=== PATIENT | male | born 1945 | race Caucasian/White ===

== ENCOUNTER 2019-06-06 11:31 | Inpatient (IN) ==
[~2019-06-06 11:31] MED LIST: ASPIRIN 325 MG TABLET PO ONE; DIAZEPAM 5 MG TABLET PO ONE; MAGNESIUM SULF RIDER 2 GM in PREMIX 1 EACH IV PRN; POTASSIUM CHLORIDE RIDER 10 MEQ in PREMIX 1 EACH IV PRN; SODIUM CHLORIDE 0.9% 1,000 ML IV SCH; diphenhydrAMINE CAP 25 MG CAPSULE PO ONE
[2019-06-06] MEDS ORDERED: DIAZEPAM 5 MG TABLET ONE (12:25)
[2019-06-06] MEDS ORDERED: diphenhydrAMINE CAP 25 MG CAPSULE ONE (12:25)
[2019-06-06 12:40] LABS: INR 1.2; PT Patient Result 12.6 SECS
[2019-06-06] MEDS ORDERED: LIDOCAINE 1% 20 ML VIAL ONE (13:57)
[2019-06-06] MEDS ORDERED: fentaNYL 100 MCG/2 ML VIAL ONE (14:02)
[2019-06-06] MEDS ORDERED: MIDAZOLAM 2 MG/2 ML VIAL ONE (14:02)
[2019-06-06] MEDS ORDERED: HEPARIN 5,000 UNIT/1 ML VIAL ONE (14:09)
[2019-06-06] MEDS ORDERED: MAGNESIUM SULF RIDER 4 GM in PREMIX 1 EACH IV PRN (15:22)
[2019-06-06] MEDS ORDERED: GLUCAGON 1 MG VIAL IM PRN (15:48)
[2019-06-06] MEDS ORDERED: DEXTROSE 10% 250 ML BAG IV PRN (15:48)
[2019-06-06] MEDS ORDERED: SODIUM CHLORIDE 0.9% 1,000 ML IV SCH (16:00)
[2019-06-06 16:13] LABS: Basophils # 0.1 10*3/uL (0.0-0.2); Basophils % 0.9 % (0.0-0.8); Eosinophils # 0.1 10*3/uL (0.0-0.87); Eosinophils % 1.9 % (0.00-10.9); Hematocrit 43.1 VOL% (42.0-52.0); Hemoglobin 13.4 GM/DL (14.0-18.0); Immature Granulocytes % 0.3 %; Immature Granulocytes Absolute 0.02 #; Lymphocytes # 1.3 10*3/uL (1.4-4.0); Lymphocytes % 19.9 % (21.2-54.2); Mean Corpuscular HGB Conc 31.1 GM/DL (32-36); Mean Corpuscular Volume 94.5 FL (87-102); Mean Platelet Volume 10.2 FL (9.6-12.0); Monocytes % 14.8 % (1.7-12.7); Neutrophils % 62.2 % (38.7-73.9); Platelet Count 233 T/CUMM (130-400); Red Blood Count 4.56 MC/CUMM (3.8-5.5); Red Cell Distribution Width 12.5 % (9.3-17.3); White Blood Count 6.4 T/CUMM (4-12)
[2019-06-06 16:29] LABS: Allen Test Positive; Pt O2 Delivery Device Room Air
[2019-06-06 16:34] LABS: ABG Base Excess 1.8 MMOL/L (-2.5-2.5); ABG HCO3 25.9 MMOL/L (20-26); ABG Oxygen Saturation 96.2 % (95-100); ABG PCO2 39.7 MM HG (35-48); ABG PH 7.427 (7.35-7.45); ABG PO2 76.4 MM HG (80-95); ABG TCO2 22.5 MMOL/L (23-27)
[2019-06-06 16:42] LABS: Albumin 3.3 G/DL (3.4-5.0); Bilirubin,Total 0.9 MG/DL (0.2-1.0); Calcium 8.7 MG/DL (8.5-10.1); Osmolality,Calculated 282.1 MOS/KG (273-304)
[2019-06-06] MEDS ORDERED: ONDANSETRON 4 MG/2 ML VIAL IV PRN (17:58)
[2019-06-06] MEDS ORDERED: diphenhydrAMINE CAP 25 MG CAPSULE PO PRN (17:58)
[2019-06-06] MEDS ORDERED: DOCUSATE SODIUM 100 MG CAPSULE PO PRN (17:58)
[2019-06-06] MEDS ORDERED: ZALEPLON 5 MG CAPSULE PO PRN (17:58)
[2019-06-06] MEDS ORDERED: ACETAMINOPHEN 325 MG TABLET PO PRN (17:58)
[2019-06-06] MEDS ORDERED: PROMETHAZINE 25 MG TABLET PO PRN (17:58)
[2019-06-06] MEDS ORDERED: MORPHINE 4 MG/1 ML VIAL IV PRN (17:58)
[2019-06-06] MEDS ORDERED: MECLIZINE 25 MG TABLET PO SCH (21:00)
[2019-06-06] MEDS ORDERED: CARBIDOPA/LEVODOPA 25-100 MG TABLET PO SCH (21:00)
[2019-06-06] MEDS: ISOSORBIDE MONONITRATE 20 MG TABLET PO SCH (21:22)
[2019-06-06] MEDS: CHLORHEXIDINE 0.12% ORAL RINSE 60 ML BOTTLE SWISH/SPIT SCH (21:24)
[2019-06-06] MEDS: CHLORHEXIDINE 4% SOLN 118 ML BOTTLE TOP SCH (21:26)
[2019-06-07] MEDS: CHLORHEXIDINE 4% SOLN 118 ML BOTTLE TOP SCH ×3 (02:48→09:40)
[2019-06-07] MEDS ORDERED: PAPAVERINE 60 MG/2 ML VIAL ONE (05:02)
[2019-06-07] MEDS ORDERED: VANCOMYCIN 1,000 MG VIAL ONE (05:03)
[2019-06-07] MEDS ORDERED: LORazepam 1 MG TABLET PO ONE (06:00)
[2019-06-07] MEDS ORDERED: CALCIUM CHLORIDE 1,000 MG/10 ML VIAL IV ONE (06:07)
[2019-06-07] MEDS ORDERED: SUFentanil 250 MCG/5 ML AMP ONE (06:08)
[2019-06-07] MEDS ORDERED: MIDAZOLAM 10 MG/2 ML VIAL ONE (06:09)
[2019-06-07] MEDS ORDERED: SUCCINYLCHOLINE 200 MG/10 ML VIAL ONE (06:09)
[2019-06-07] MEDS ORDERED: CEFUROXIME INJ 1,500 MG in SYRINGE 1 EACH IV ONE (06:30)
[2019-06-07] MEDS ORDERED: CALCIUM CHLORIDE 1,000 MG/10 ML SYRINGE IV ONE (07:09)
[2019-06-07] MEDS ORDERED: NITROPRUSSIDE 50 MG/2 ML VIAL ONE (07:09)
[2019-06-07] MEDS ORDERED: POTASSIUM CHLORIDE RIDER 100 ML IV ONE (07:09)
[2019-06-07] MEDS ORDERED: PHENYLEPHRINE DRIP 40 MG/250 ML PREMIX IV ONE (07:09)
[2019-06-07] MEDS ORDERED: SODIUM BICARBONATE 50 MEQ/50 ML VIAL IV ONE ×2 (07:09→11:03)
[2019-06-07 07:42] LABS: ABG Base Excess 0.7 MMOL/L (-2.5-2.5); ABG HCO3 25.1 MMOL/L (20-26); ABG Oxygen Saturation 99.7 % (95-100); ABG PCO2 43.8 MM HG (35-48); ABG PH 7.382 (7.35-7.45); ABG TCO2 22.7 MMOL/L (23-27); Glucose Heart Surgery 109 MG/DL (74-106); Hematocrit Heart Surgery 40.9 PERCENT (42-52); Hemoglobin Heart Surgery 13.3 G/DL (14.0-18.0); Ionized Calcium Arterial 1.21 MMOL/L (1.21-1.46); PCO2 Patient Temp Arterial 43.8 MMHG; PH Patient Temp Arterial 7.382; Patient Temperature 37 CELCIUS; Potassium Heart/CVR 3.6 MMOL/L (3.5-5.1); Sodium Heart/CVR 140 MMOL/L (135-145)
[2019-06-07 08:07] LABS: Apearance,Urine CLEAR (Clear); Bilirubin,Urine Negative (Negative); Blood, Urine Negative (Negative); Glucose,Urine (UA) Negative (Negative); Ketones,Urine Negative (Negative); Mucus,Urine Occasional /LPF (Occasional); Nitrite,Urine Negative (Negative); Protein,Urine Negative; RBC,Urine <1 /HPF (0-4); Squamous Epithelial Cell,Urine Occasional /HPF (0-10); Urine Color Yellow (Yellow); Urine Specific Gravity 1.019 (1.001-1.035); Urine Urobilinogen < 2.0 EU/DL (0.2-1.0)
[2019-06-07] MEDS ORDERED: CITALOPRAM 20 MG TABLET PO SCH (09:00)
[2019-06-07] MEDS ORDERED: POTASSIUM CHLORIDE 8 MEQ CAPSULE PO SCH (09:00)
[2019-06-07] MEDS ORDERED: ASPIRIN 325 MG TABLET PO SCH (09:00)
[2019-06-07] MEDS ORDERED: GABAPENTIN 100 MG CAPSULE PO SCH (09:00)
[2019-06-07] MEDS ORDERED: LISINOPRIL 20 MG TABLET PO SCH (09:00)
[2019-06-07] MEDS ORDERED: amLODIPine 5 MG TABLET PO SCH (09:00)
[2019-06-07] MEDS ORDERED: METOPROLOL SUCCINATE XL 50 MG TABLET PO SCH (09:00)
[2019-06-07] MEDS ORDERED: FUROSEMIDE 40 MG TABLET PO SCH (09:00)
[2019-06-07 09:34] LABS: Hematocrit Heart Surgery 29.2 PERCENT (42-52); Hemoglobin Heart Surgery 9.4 G/DL (14.0-18.0); PCO2 Patient Temp Venous 32.6 MM HG; PH Patient Temp Venous 7.479; PO2 Patient Temp Venous 39.2 MM HG; Potassium Heart/CVR 4.6 MMOL/L (3.5-5.1); VBG Base Excess 1.2 MEQ/L (0-4); VBG HCO3 25.2 MEQ/L (24-28); VBG PH 7.449
[2019-06-07] MEDS ORDERED: PHENYLEPHRINE DRIP 20 MG/250 ML PREMIX IV ONE (09:38)
[2019-06-07] MEDS ORDERED: AMINOCAPROIC ACID 5,000 MG/20 ML VIAL ONE (09:39)
[2019-06-07] MEDS ORDERED: NITROGLYCERIN DRIP 50 MG/250 ML BOTTLE IV ONE (09:39)
[2019-06-07] MEDS ORDERED: HEPARIN/NACL 0.9% 2 UNITS/ML 500 ML IV ONE (09:39)
[2019-06-07] MEDS: ISOSORBIDE MONONITRATE 20 MG TABLET PO SCH (09:40)
[2019-06-07] MEDS: CHLORHEXIDINE 0.12% ORAL RINSE 60 ML BOTTLE SWISH/SPIT SCH ×2 (09:41→20:36)
[2019-06-07 10:04] LABS: Hematocrit Heart Surgery 30.3 PERCENT (42-52); Hemoglobin Heart Surgery 9.8 G/DL (14.0-18.0); PCO2 Patient Temp Venous 32.9 MM HG; PH Patient Temp Venous 7.468; PO2 Patient Temp Venous 37.6 MM HG; Potassium Heart/CVR 3.9 MMOL/L (3.5-5.1); VBG Base Excess 0.6 MEQ/L (0-4); VBG HCO3 24.8 MEQ/L (24-28); VBG Oxygen Saturation 84.9 %; VBG PH 7.424; VBG PO2 46.3 MMHG (17-40)
[2019-06-07 10:34] LABS: Hematocrit Heart Surgery 31.1 PERCENT (42-52); PCO2 Patient Temp Venous 37.1 MM HG; PH Patient Temp Venous 7.436; PO2 Patient Temp Venous 38.3 MM HG; Potassium Heart/CVR 4.2 MMOL/L (3.5-5.1); VBG Base Excess 0.9 MEQ/L (0-4); VBG HCO3 24.9 MEQ/L (24-28); VBG Oxygen Saturation 76.6 %; VBG PCO2 37.1 MMHG (41-51); VBG PH 7.436; VBG PO2 38.3 MMHG (17-40)
[2019-06-07] MEDS ORDERED: PROTAMINE SULFATE 250 MG/25 ML VIAL IV ONE (11:03)
[2019-06-07] MEDS ORDERED: ALBUMIN 25% 25 GM/100 ML VIAL IV ONE (11:03)
[2019-06-07] MEDS ORDERED: MANNITOL 100 GM/500 ML BAG IV ONE (11:03)
[2019-06-07] MEDS ORDERED: DEXTROSE 5% KCL 20 MEQ 20 MEQ/1,000 ML BAG IV ONE (11:03)
[2019-06-07] MEDS ORDERED: methylPREDNISolone SOD SUC 1,000 MG/8 ML VIAL ONE (11:04)
[2019-06-07] MEDS ORDERED: PROTAMINE SULFATE 50 MG/5 ML VIAL IV ONE ×2 (11:04→12:33)
[2019-06-07] MEDS ORDERED: HEPARIN 10,000 UNIT/10 ML VIAL ONE (11:04)
[2019-06-07] MEDS ORDERED: MAGNESIUM SULFATE 5 GM/10 ML VIAL IV ONE (11:04)
[2019-06-07] MEDS ORDERED: FUROSEMIDE 20 MG/2 ML VIAL ONE (11:04)
[2019-06-07 11:18] LABS: ABG HCO3 24.5 MMOL/L (20-26); ABG PCO2 36.5 MM HG (35-48); ABG PH 7.427 (7.35-7.45); ABG TCO2 21.7 MMOL/L (23-27); Glucose Heart Surgery 200 MG/DL (74-106); Hematocrit Heart Surgery 32.3 PERCENT (42-52); Hemoglobin Heart Surgery 10.5 G/DL (14.0-18.0); Ionized Calcium Arterial 1.29 MMOL/L (1.21-1.46); PCO2 Patient Temp Arterial 36.5 MMHG; PH Patient Temp Arterial 7.427; Patient Temperature 37 CELCIUS; Potassium Heart/CVR 3.6 MMOL/L (3.5-5.1); Sodium Heart/CVR 136 MMOL/L (135-145)
[2019-06-07] MEDS ORDERED: THROMBIN TOPICAL (RECOMBINANT) 5,000 UNIT VIAL TOP ONE (11:31)
[2019-06-07] MEDS ORDERED: AMIODARONE 450 MG/9 ML VIAL IV ONE (11:58)
[2019-06-07] MEDS ORDERED: AMIODARONE INJ 450 MG in DEXTROSE 5% 241 ML IV SCH ×3 (12:00→18:00)
[2019-06-07] MEDS ORDERED: MORPHINE 10 MG/1 ML VIAL IV PRN (12:30)
[2019-06-07] MEDS ORDERED: ONDANSETRON 4 MG/2 ML VIAL IV PRN (12:30)
[2019-06-07] MEDS ORDERED: NITROPRUSSIDE 100 MG in DEXTROSE 5% 250 ML IV PRN (12:30)
[2019-06-07] MEDS ORDERED: ALBUMIN 5% 12.5 GM in PREMIX 1 EACH IV PRN (12:30)
[2019-06-07] MEDS ORDERED: MORPHINE 4 MG/1 ML VIAL IV PRN (12:30)
[2019-06-07] MEDS ORDERED: DEXTROSE 50% 25 GM/50 ML VIAL IV PRN ×2 (12:30)
[2019-06-07] MEDS ORDERED: MAGNESIUM SULF RIDER 4 GM in PREMIX 1 EACH IV PRN (12:30)
[2019-06-07] MEDS ORDERED: CALCIUM CHLORIDE 1,000 MG/10 ML SYRINGE IV PRN (12:30)
[2019-06-07] MEDS ORDERED: PHENYLEPHRINE DRIP 40 MG/250 ML PREMIX IV PRN (12:30)
[2019-06-07] MEDS ORDERED: ACETAMINOPHEN 650 MG SUPP RECTAL PRN (12:30)
[2019-06-07] MEDS ORDERED: MAGNESIUM SULF RIDER 2 GM in PREMIX 1 EACH IV PRN (12:30)
[2019-06-07] MEDS ORDERED: LACTATED RINGERS 250 ML IV PRN (12:30)
[2019-06-07] MEDS ORDERED: INSULIN REGULAR DRIP 100 ML IV SCH (12:30)
[2019-06-07] MEDS ORDERED: VECURONIUM 10 MG VIAL IV PRN ×2 (12:30)
[2019-06-07] MEDS ORDERED: MIDAZOLAM 10 MG/2 ML VIAL IV PRN (12:30)
[2019-06-07] MEDS ORDERED: MIDAZOLAM 2 MG/2 ML VIAL IV PRN (12:30)
[2019-06-07] MEDS ORDERED: INSULIN REGULAR 100 UNIT/ML IV ONE (12:30)
[2019-06-07 12:35] LABS: ABG Base Excess -1.6 MMOL/L (-2.5-2.5); ABG Oxygen Saturation 97.1 % (95-100); ABG PCO2 38.5 MM HG (35-48); ABG PH 7.386 (7.35-7.45); ABG PO2 86.8 MM HG (80-95); ABG TCO2 20.9 MMOL/L (23-27); Basophils % 0.4 % (0.0-0.8); Eosinophils % 0.3 % (0.00-10.9); Glucose Heart Surgery 167 MG/DL (74-106); Hematocrit 33.8 VOL% (42.0-52.0); Hemoglobin 10.7 GM/DL (14.0-18.0); Hemoglobin Heart Surgery 10.7 G/DL (14.0-18.0); Immature Granulocytes % 0.5 %; Immature Granulocytes Absolute 0.04 #; Lymphocytes # 0.3 10*3/uL (1.4-4.0); Lymphocytes % 3.4 % (21.2-54.2); Mean Corpuscular HGB Conc 31.7 GM/DL (32-36); Mean Corpuscular Volume 93.4 FL (87-102); Mean Platelet Volume 10.1 FL (9.6-12.0); Monocytes % 8.3 % (1.7-12.7); Neutrophils % 87.1 % (38.7-73.9); Platelet Count 192 T/CUMM (130-400); Potassium Heart/CVR 3.2 MMOL/L (3.5-5.1); Red Blood Count 3.62 MC/CUMM (3.8-5.5); Red Cell Distribution Width 12.4 % (9.3-17.3); White Blood Count 7.9 T/CUMM (4-12)
[2019-06-07 12:43] LABS: INR 1.2; PT Patient Result 13.4 SECS; Partial Thromboplastin Time 28.2 SECS (0-40)
[2019-06-07] MEDS ORDERED: ePHEDrine 50 MG/ML AMP ONE (12:47)
[2019-06-07] MEDS ORDERED: MINERAL OIL/PETROLATUM OPH OINT 3.5 GM TUBE ONE (12:47)
[2019-06-07] MEDS ORDERED: SEVOFLURANE 1 UNIT/15 MINUTE INH ONE (12:47)
[2019-06-07] MEDS ORDERED: LACTATED RINGERS 2,000 ML IV ONE (12:48)
[2019-06-07] MEDS ORDERED: PHENYLEPHRINE 1 MG/10 ML SYRINGE IV ONE (12:48)
[2019-06-07] MEDS ORDERED: VECURONIUM 10 MG VIAL IV ONE (12:48)
[2019-06-07] MEDS ORDERED: SODIUM CHLORIDE 0.9% 250 ML IV ONE (12:48)
[2019-06-07] MEDS ORDERED: AMIODARONE 150 MG/3 ML VIAL ONE ×2 (12:48→12:53)
[2019-06-07] MEDS ORDERED: ETOMIDATE 40 MG/20 ML VIAL IV ONE (12:48)
[2019-06-07] MEDS ORDERED: SODIUM CHLORIDE 0.9% 300 ML IV ONE (12:48)
[2019-06-07] MEDS ORDERED: SODIUM CHLORIDE 0.9% 1,000 ML IV ONE (12:48)
[2019-06-07 12:55] LABS: Band Neutrophils 3 % (0-10); Hypochromasia 1+; Lymphocytes 2 % (20-55); Platelet Estimate Adequate; Segmented Neutrophils 86 % (50-85); Total Cells Counted 100
[2019-06-07 12:56] LABS: Microcytosis Slight
[2019-06-07] MEDS: SODIUM CHLORIDE 0.45% 1,000 ML IV SCH ×2 (12:57)
[2019-06-07 13:21] LABS: Troponin I 1.8 NG/ML (0.00-0.045)
[2019-06-07] MEDS: POTASSIUM CHLORIDE RIDER 20 MEQ in PREMIX 1 EACH IV PRN ×5 (13:32→21:10)
[2019-06-07 13:35] LABS: Bilirubin,Total 2.5 MG/DL (0.2-1.0); Calcium 8.8 MG/DL (8.5-10.1); Osmolality,Calculated 291.8 MOS/KG (273-304); Total Protein 5.6 G/DL (6.4-8.3)
[2019-06-07] MEDS: KETOROLAC 30 MG/1 ML VIAL IV SCH ×2 (13:48→18:11)
[2019-06-07 14:45] LABS: ABG Base Excess 0.5 MMOL/L (-2.5-2.5); ABG HCO3 24.9 MMOL/L (20-26); ABG Oxygen Saturation 97.8 % (95-100); ABG PH 7.398 (7.35-7.45); ABG PO2 90.1 MM HG (80-95); ABG TCO2 22.7 MMOL/L (23-27); Glucose Heart Surgery 163 MG/DL (74-106); Hematocrit Heart Surgery 33.9 PERCENT (42-52); Potassium Heart/CVR 3.9 MMOL/L (3.5-5.1)
[2019-06-07] MEDS: INSULIN REGULAR 100 UNIT/ML IV PRN ×3 (15:00→22:15)
[2019-06-07] MEDS: POTASSIUM CHLORIDE RIDER 10 MEQ in PREMIX 1 EACH IV PRN (15:37)
[2019-06-07 16:35] LABS: ABG Base Excess -0.9 MMOL/L (-2.5-2.5); ABG HCO3 23.6 MMOL/L (20-26); ABG PH 7.386 (7.35-7.45); ABG TCO2 21.4 MMOL/L (23-27); Glucose Heart Surgery 138 MG/DL (74-106); Hematocrit Heart Surgery 34.9 PERCENT (42-52); Hemoglobin Heart Surgery 11.3 G/DL (14.0-18.0)
[2019-06-07 20:12] LABS: ABG Base Excess -1.3 MMOL/L (-2.5-2.5); ABG HCO3 23.3 MMOL/L (20-26); ABG Oxygen Saturation 97.9 % (95-100); ABG PCO2 41.8 MM HG (35-48); ABG PH 7.367 (7.35-7.45); ABG PO2 97.6 MM HG (80-95); ABG TCO2 21.7 MMOL/L (23-27); Glucose Heart Surgery 164 MG/DL (74-106); Hematocrit Heart Surgery 33.6 PERCENT (42-52); Hemoglobin Heart Surgery 10.9 G/DL (14.0-18.0); Potassium Heart/CVR 4.3 MMOL/L (3.5-5.1)
[2019-06-07] MEDS ORDERED: FUROSEMIDE 40 MG/4 ML VIAL IV ONE (20:25)
[2019-06-07] MEDS: CEFUROXIME INJ 1,500 MG in SYRINGE 1 EACH IV SCH (20:36)
[2019-06-07 22:26] LABS: ABG Base Excess -1.8 MMOL/L (-2.5-2.5); ABG Oxygen Saturation 98.7 % (95-100); ABG PCO2 40.8 MM HG (35-48); ABG PH 7.367 (7.35-7.45); ABG TCO2 21.1 MMOL/L (23-27); Glucose Heart Surgery 144 MG/DL (74-106); Potassium Heart/CVR 4.1 MMOL/L (3.5-5.1)
[2019-06-07 22:30] LABS: CKMB % 7.1 %
[2019-06-07 22:44] LABS: Troponin I 4.32 NG/ML (0.00-0.045)
[2019-06-07 23:14] LABS: ABG Base Excess -1.2 MMOL/L (-2.5-2.5); ABG HCO3 23.4 MMOL/L (20-26); ABG Oxygen Saturation 98.2 % (95-100); ABG PCO2 43.5 MM HG (35-48); ABG PH 7.357 (7.35-7.45); ABG TCO2 21.9 MMOL/L (23-27); Glucose Heart Surgery 131 MG/DL (74-106); Hematocrit Heart Surgery 34.8 PERCENT (42-52); Hemoglobin Heart Surgery 11.3 G/DL (14.0-18.0); Potassium Heart/CVR 4.3 MMOL/L (3.5-5.1)
[2019-06-08 00:07] LABS: ABG Base Excess -1.9 MMOL/L (-2.5-2.5); ABG HCO3 23.1 MMOL/L (20-26); ABG Oxygen Saturation 97.7 % (95-100); ABG PCO2 40.3 MM HG (35-48); ABG PH 7.376 (7.35-7.45); ABG PO2 113.5 MM HG (80-95); ABG TCO2 24.3 MMOL/L (23-27); Glucose Heart Surgery 106 MG/DL (74-106); Hemoglobin Heart Surgery 11.7 G/DL (14.0-18.0); Potassium Heart/CVR 4.1 MMOL/L (3.5-5.1)
[2019-06-08] MEDS: KETOROLAC 30 MG/1 ML VIAL IV SCH ×5 (00:29→18:49)
[2019-06-08] MEDS: POTASSIUM CHLORIDE RIDER 20 MEQ in PREMIX 1 EACH IV PRN (01:53)
[2019-06-08 04:18] LABS: ABG Base Excess -0.4 MMOL/L (-2.5-2.5); ABG Oxygen Saturation 93.6 % (95-100); ABG PCO2 39.5 MM HG (35-48); ABG PH 7.398 (7.35-7.45); ABG PO2 63.7 MM HG (80-95); ABG TCO2 21.9 MMOL/L (23-27); Glucose Heart Surgery 113 MG/DL (74-106); Potassium Heart/CVR 4.6 MMOL/L (3.5-5.1)
[2019-06-08 04:20] LABS: Basophils % 0.1 % (0.0-0.8); Hemoglobin 10.6 GM/DL (14.0-18.0); Immature Granulocytes % 0.6 %; Immature Granulocytes Absolute 0.09 #; Lymphocytes # 0.3 10*3/uL (1.4-4.0); Lymphocytes % 2.1 % (21.2-54.2); Mean Corpuscular HGB Conc 32.1 GM/DL (32-36); Mean Corpuscular Volume 93.5 FL (87-102); Mean Platelet Volume 10.3 FL (9.6-12.0); Monocytes % 7.2 % (1.7-12.7); Platelet Count 237 T/CUMM (130-400); Red Blood Count 3.53 MC/CUMM (3.8-5.5); Red Cell Distribution Width 12.7 % (9.3-17.3); White Blood Count 15.6 T/CUMM (4-12)
[2019-06-08 04:42] LABS: Albumin 3.3 G/DL (3.4-5.0); Bilirubin,Direct 0.45 MG/DL (0.0-0.20); Bilirubin,Total 1.1 MG/DL (0.2-1.0); Calcium 9.1 MG/DL (8.5-10.1); Total Protein 6.3 G/DL (6.4-8.3)
[2019-06-08 04:43] LABS: CKMB % 9.8 %
[2019-06-08] MEDS: POTASSIUM CHLORIDE RIDER 10 MEQ in PREMIX 1 EACH IV PRN (04:46)
[2019-06-08 04:47] LABS: Anisocytosis 1+; Lymphocytes 3 % (20-55); Segmented Neutrophils 92 % (50-85); Total Cells Counted 100
[2019-06-08 04:48] LABS: Ovalocytes Slight; Platelet Estimate Adequate
[2019-06-08 04:49] LABS: Troponin I 9.78 NG/ML (0.00-0.045)
[2019-06-08] MEDS: METOPROLOL SUCCINATE XL 50 MG TABLET PO SCH ×2 (05:13→09:21)
[2019-06-08] MEDS: LISINOPRIL 20 MG TABLET PO SCH ×2 (05:13→09:21)
[2019-06-08] MEDS: amLODIPine 5 MG TABLET PO SCH ×2 (05:13→09:21)
[2019-06-08] MEDS: CEFUROXIME INJ 1,500 MG in SYRINGE 1 EACH IV SCH (08:16)
[2019-06-08 09:36] LABS: ABG Base Excess -1.7 MMOL/L (-2.5-2.5); ABG HCO3 22.9 MMOL/L (20-26); ABG Oxygen Saturation 96.4 % (95-100); ABG PCO2 35.9 MM HG (35-48); ABG PH 7.405 (7.35-7.45); ABG PO2 75.2 MM HG (80-95); ABG TCO2 20.3 MMOL/L (23-27); Glucose Heart Surgery 158 MG/DL (74-106); Hematocrit Heart Surgery 32.5 PERCENT (42-52); Hemoglobin Heart Surgery 10.5 G/DL (14.0-18.0); Potassium Heart/CVR 4.7 MMOL/L (3.5-5.1)
[2019-06-08] MEDS: CHLORHEXIDINE 0.12% ORAL RINSE 60 ML BOTTLE SWISH/SPIT SCH ×2 (09:46→22:26)
[2019-06-08] MEDS ORDERED: INSULIN REGULAR 100 UNIT/ML SUBCUT SCH (10:00)
[2019-06-08 11:27] LABS: CKMB % 9.8 %
[2019-06-08 11:29] LABS: Troponin I 7.95 NG/ML (0.00-0.045)
[2019-06-08] MEDS ORDERED: DEXTROSE 10% 25 GM/250 ML BAG IV PRN ×2 (12:30)
[2019-06-08] MEDS ORDERED: SODIUM CHLOR 0.45% KCL 20 MEQ 20 MEQ/1,000 ML BAG IV SCH (12:30)
[2019-06-08] MEDS ORDERED: MAGNESIUM SULF RIDER 4 GM in PREMIX 1 EACH IV PRN (12:30)
[2019-06-08] MEDS ORDERED: ONDANSETRON 4 MG/2 ML VIAL IV PRN (12:30)
[2019-06-08] MEDS ORDERED: POTASSIUM CHLORIDE 20 MEQ TABLET PO PRN (12:30)
[2019-06-08] MEDS ORDERED: MAGNESIUM HYDROXIDE SUSP 30 ML UDCUP PO PRN (12:30)
[2019-06-08] MEDS ORDERED: ACETAMINOPHEN 325 MG TABLET PO PRN (12:30)
[2019-06-08] MEDS ORDERED: GLUCAGON 1 MG VIAL IM PRN ×2 (12:30)
[2019-06-08] MEDS ORDERED: MAGNESIUM SULF RIDER 2 GM in PREMIX 1 EACH IV PRN (12:30)
[2019-06-08] MEDS ORDERED: ALUMINUM/MAGNES/SIMETH MAX STR 30 ML UDCUP PO PRN (12:30)
[2019-06-08] MEDS ORDERED: ZALEPLON 5 MG CAPSULE PO PRN (12:30)
[2019-06-08] MEDS: SODIUM CHLORIDE 0.45% 1,000 ML IV SCH ×2 (14:04)
[2019-06-08] MEDS: INSULIN REGULAR 100 UNIT/ML SUBCUT SCH ×3 (14:43→22:27)
[2019-06-08] MEDS: WARFARIN 3 MG TABLET PO SCH (17:44)
[2019-06-08] MEDS: ISOSORBIDE MONONITRATE 20 MG TABLET PO SCH (22:26)
[2019-06-08] MEDS: CARBIDOPA/LEVODOPA 25-100 MG TABLET PO SCH (22:26)
[2019-06-08] MEDS: oxyCODONE/ACETAMINOPHEN 5-325 MG TABLET PO PRN (22:28)
[2019-06-08] MEDS: MECLIZINE 25 MG TABLET PO SCH (22:30)
[2019-06-09] MEDS: KETOROLAC 30 MG/1 ML VIAL IV SCH ×4 (03:01→20:13)
[2019-06-09] MEDS: INSULIN REGULAR 100 UNIT/ML SUBCUT SCH ×6 (03:01→20:13)
[2019-06-09 05:28] LABS: Basophils % 0.1 % (0.0-0.8); Eosinophils % 0.1 % (0.00-10.9); Hematocrit 30.9 VOL% (42.0-52.0); Hemoglobin 9.7 GM/DL (14.0-18.0); Immature Granulocytes % 0.8 %; Immature Granulocytes Absolute 0.11 #; Lymphocytes # 0.6 10*3/uL (1.4-4.0); Lymphocytes % 4.7 % (21.2-54.2); Mean Corpuscular HGB Conc 31.4 GM/DL (32-36); Mean Corpuscular Volume 95.7 FL (87-102); Mean Platelet Volume 11.2 FL (9.6-12.0); Neutrophils % 80.3 % (38.7-73.9); Platelet Count 217 T/CUMM (130-400); Red Blood Count 3.23 MC/CUMM (3.8-5.5); Red Cell Distribution Width 13.1 % (9.3-17.3); White Blood Count 13.5 T/CUMM (4-12)
[2019-06-09 05:38] LABS: INR 1.1; PT Patient Result 12.4 SECS
[2019-06-09] MEDS ORDERED: FUROSEMIDE 40 MG/4 ML VIAL IV ONE (06:00)
[2019-06-09 06:09] LABS: Albumin 2.9 G/DL (3.4-5.0); Bilirubin,Direct 0.21 MG/DL (0.0-0.20); Bilirubin,Indirect 0.7 MG/DL (0.0-1.0); Bilirubin,Total 0.9 MG/DL (0.2-1.0); Total Protein 6.1 G/DL (6.4-8.3)
[2019-06-09 06:10] LABS: Troponin I 6.71 NG/ML (0.00-0.045)
[2019-06-09 06:19] LABS: Microcytosis 1+
[2019-06-09 06:20] LABS: Platelet Estimate Normal
[2019-06-09] MEDS: CITALOPRAM 20 MG TABLET PO SCH (10:13)
[2019-06-09] MEDS: LISINOPRIL 20 MG TABLET PO SCH (10:13)
[2019-06-09] MEDS: ISOSORBIDE MONONITRATE 20 MG TABLET PO SCH ×2 (10:13→20:14)
[2019-06-09] MEDS: ASPIRIN EC 325 MG TABLET PO SCH (10:14)
[2019-06-09] MEDS: GABAPENTIN 100 MG CAPSULE PO SCH (10:14)
[2019-06-09] MEDS: DOCUSATE SODIUM 100 MG CAPSULE PO SCH (10:14)
[2019-06-09] MEDS: FERROUS SULFATE 325 MG TABLET PO SCH (10:14)
[2019-06-09] MEDS: METOPROLOL SUCCINATE XL 50 MG TABLET PO SCH (10:14)
[2019-06-09] MEDS: amLODIPine 5 MG TABLET PO SCH (10:14)
[2019-06-09] MEDS: PANTOPRAZOLE 40 MG TABLET PO SCH (10:14)
[2019-06-09] MEDS: CHLORHEXIDINE 0.12% ORAL RINSE 60 ML BOTTLE SWISH/SPIT SCH ×2 (12:15→20:14)
[2019-06-09] MEDS: METOPROLOL SUCCINATE XL 100 MG TABLET PO SCH (12:16)
[2019-06-09] MEDS: WARFARIN 3 MG TABLET PO SCH (18:58)
[2019-06-09] MEDS: MECLIZINE 25 MG TABLET PO SCH (20:14)
[2019-06-09] MEDS: CARBIDOPA/LEVODOPA 25-100 MG TABLET PO SCH (20:14)
[2019-06-10] MEDS: KETOROLAC 30 MG/1 ML VIAL IV SCH ×4 (00:30→19:02)
[2019-06-10 05:03] LABS: Basophils % 0.1 % (0.0-0.8); Eosinophils # 0.1 10*3/uL (0.0-0.87); Eosinophils % 0.9 % (0.00-10.9); Hematocrit 30.3 VOL% (42.0-52.0); Hemoglobin 9.2 GM/DL (14.0-18.0); Immature Granulocytes % 0.4 %; Immature Granulocytes Absolute 0.03 #; Lymphocytes # 0.8 10*3/uL (1.4-4.0); Lymphocytes % 9.4 % (21.2-54.2); Mean Corpuscular HGB Conc 30.4 GM/DL (32-36); Mean Corpuscular Volume 97.7 FL (87-102); Monocytes % 16.7 % (1.7-12.7); Neutrophils % 72.5 % (38.7-73.9); Platelet Count 175 T/CUMM (130-400); Red Cell Distribution Width 12.9 % (9.3-17.3); White Blood Count 8.4 T/CUMM (4-12)
[2019-06-10 05:22] LABS: INR 1.1
[2019-06-10 05:24] LABS: Alanine Aminotransferase 11 U/L (16-61); Albumin 2.7 G/DL (3.4-5.0); Alkaline Phosphatase 51 U/L (45-117); Aspartate Amino Transferase 38 U/L (0-37); Bilirubin,Indirect 0.4 MG/DL (0.0-1.0); Blood Urea Nitrogen 38 MG/DL (7-18); Calcium 8.7 MG/DL (8.5-10.1); Glucose 95 MG/DL (74-106); Total Protein 5.7 G/DL (6.4-8.3)
[2019-06-10 05:27] LABS: Eosinophils 1 % (0-10); Lymphocytes 11 % (20-55); Segmented Neutrophils 79 % (50-85); Total Cells Counted 100
[2019-06-10 05:28] LABS: Atypical Lymphocytes Few
[2019-06-10 05:29] LABS: Microcytosis Slight; Platelet Estimate Adequate
[2019-06-10] MEDS: PANTOPRAZOLE 40 MG TABLET PO SCH (10:57)
[2019-06-10] MEDS: GABAPENTIN 100 MG CAPSULE PO SCH (10:57)
[2019-06-10] MEDS: CITALOPRAM 20 MG TABLET PO SCH (10:57)
[2019-06-10] MEDS: DOCUSATE SODIUM 100 MG CAPSULE PO SCH (10:57)
[2019-06-10] MEDS: ISOSORBIDE MONONITRATE 20 MG TABLET PO SCH ×2 (10:57→22:07)
[2019-06-10] MEDS: ASPIRIN EC 325 MG TABLET PO SCH (10:57)
[2019-06-10] MEDS: METOPROLOL SUCCINATE XL 100 MG TABLET PO SCH (10:57)
[2019-06-10] MEDS: FERROUS SULFATE 325 MG TABLET PO SCH (10:59)
[2019-06-10] MEDS: amLODIPine 5 MG TABLET PO SCH (10:59)
[2019-06-10] MEDS: LISINOPRIL 20 MG TABLET PO SCH (10:59)
[2019-06-10] MEDS: CHLORHEXIDINE 0.12% ORAL RINSE 60 ML BOTTLE SWISH/SPIT SCH ×2 (11:04→22:08)
[2019-06-10] MEDS: INSULIN REGULAR 100 UNIT/ML SUBCUT SCH ×4 (11:12→22:08)
[2019-06-10] MEDS: WARFARIN 4 MG TABLET PO SCH (18:29)
[2019-06-10] MEDS: ROSUVASTATIN 20 MG TABLET PO SCH (22:07)
[2019-06-10] MEDS: MECLIZINE 25 MG TABLET PO SCH (22:07)
[2019-06-10] MEDS: CARBIDOPA/LEVODOPA 25-100 MG TABLET PO SCH (22:08)
[2019-06-11] MEDS: KETOROLAC 30 MG/1 ML VIAL IV SCH ×2 (00:27→06:05)
[2019-06-11 06:29] LABS: INR 1.1
[2019-06-11] MEDS: INSULIN REGULAR 100 UNIT/ML SUBCUT SCH (09:01)
[2019-06-11] MEDS ORDERED: INSULIN REGULAR 100 UNIT/ML SUBCUT PRN (09:04)
[2019-06-11] MEDS: CITALOPRAM 20 MG TABLET PO SCH (09:32)
[2019-06-11] MEDS: amLODIPine 5 MG TABLET PO SCH (09:32)
[2019-06-11] MEDS: ISOSORBIDE MONONITRATE 20 MG TABLET PO SCH ×2 (09:32→21:42)
[2019-06-11] MEDS: PANTOPRAZOLE 40 MG TABLET PO SCH (09:33)
[2019-06-11] MEDS: ASPIRIN EC 325 MG TABLET PO SCH (09:33)
[2019-06-11] MEDS: FERROUS SULFATE 325 MG TABLET PO SCH (09:33)
[2019-06-11] MEDS: DOCUSATE SODIUM 100 MG CAPSULE PO SCH (09:33)
[2019-06-11] MEDS: LISINOPRIL 20 MG TABLET PO SCH (09:33)
[2019-06-11] MEDS: CHLORHEXIDINE 0.12% ORAL RINSE 60 ML BOTTLE SWISH/SPIT SCH ×2 (09:34→21:42)
[2019-06-11] MEDS: GABAPENTIN 100 MG CAPSULE PO SCH (09:34)
[2019-06-11] MEDS: METOPROLOL SUCCINATE XL 100 MG TABLET PO SCH (09:34)
[2019-06-11] MEDS: WARFARIN 3 MG TABLET PO SCH (17:47)
[2019-06-11] MEDS: MECLIZINE 25 MG TABLET PO SCH (21:42)
[2019-06-11] MEDS: CARBIDOPA/LEVODOPA 25-100 MG TABLET PO SCH (21:42)
[2019-06-11] MEDS: ROSUVASTATIN 20 MG TABLET PO SCH (21:42)
[2019-06-12 04:52] LABS: Basophils % 0.3 % (0.0-0.8); Eosinophils # 0.2 10*3/uL (0.0-0.87); Eosinophils % 2.4 % (0.00-10.9); Hemoglobin 9.2 GM/DL (14.0-18.0); Immature Granulocytes % 0.5 %; Immature Granulocytes Absolute 0.04 #; Lymphocytes # 0.7 10*3/uL (1.4-4.0); Lymphocytes % 9.6 % (21.2-54.2); Mean Corpuscular HGB Conc 31.7 GM/DL (32-36); Mean Corpuscular Volume 96.3 FL (87-102); Mean Platelet Volume 10.7 FL (9.6-12.0); Monocytes % 18.4 % (1.7-12.7); Neutrophils % 68.8 % (38.7-73.9); Platelet Count 221 T/CUMM (130-400); Red Blood Count 3.01 MC/CUMM (3.8-5.5); Red Cell Distribution Width 12.8 % (9.3-17.3); White Blood Count 7.4 T/CUMM (4-12)
[2019-06-12 05:24] LABS: Alanine Aminotransferase 11 U/L (16-61); Albumin 2.6 G/DL (3.4-5.0); Alkaline Phosphatase 55 U/L (45-117); Aspartate Amino Transferase 20 U/L (0-37); Bilirubin,Indirect 0.5 MG/DL (0.0-1.0); Blood Urea Nitrogen 26 MG/DL (7-18); Calcium 8.9 MG/DL (8.5-10.1); Glucose 105 MG/DL (74-106); Total Protein 5.8 G/DL (6.4-8.3)
[2019-06-12 05:25] LABS: INR 1.2; PT Patient Result 13.2 SECS
[2019-06-12 05:37] LABS: Eosinophils 1 % (0-10); Lymphocytes 16 % (20-55); Segmented Neutrophils 70 % (50-85); Total Cells Counted 100
[2019-06-12 05:38] LABS: Microcytosis 1+; Platelet Estimate Normal
[2019-06-12] MEDS: ISOSORBIDE MONONITRATE 20 MG TABLET PO SCH ×2 (09:02→21:15)
[2019-06-12] MEDS: amLODIPine 5 MG TABLET PO SCH (09:03)
[2019-06-12] MEDS: DOCUSATE SODIUM 100 MG CAPSULE PO SCH (09:03)
[2019-06-12] MEDS: FERROUS SULFATE 325 MG TABLET PO SCH (09:03)
[2019-06-12] MEDS: METOPROLOL SUCCINATE XL 100 MG TABLET PO SCH (09:03)
[2019-06-12] MEDS: PANTOPRAZOLE 40 MG TABLET PO SCH (09:03)
[2019-06-12] MEDS: ASPIRIN EC 325 MG TABLET PO SCH (09:04)
[2019-06-12] MEDS: LISINOPRIL 20 MG TABLET PO SCH (09:04)
[2019-06-12] MEDS: CITALOPRAM 20 MG TABLET PO SCH (09:04)
[2019-06-12] MEDS: GABAPENTIN 100 MG CAPSULE PO SCH (09:20)
[2019-06-12] MEDS: CHLORHEXIDINE 0.12% ORAL RINSE 60 ML BOTTLE SWISH/SPIT SCH ×2 (09:20→21:15)
[2019-06-12] MEDS: SPIRONOLACTONE 25 MG TABLET PO SCH (17:45)
[2019-06-12] MEDS: WARFARIN 4 MG TABLET PO SCH (17:46)
[2019-06-12] MEDS: ROSUVASTATIN 20 MG TABLET PO SCH (21:15)
[2019-06-12] MEDS: MECLIZINE 25 MG TABLET PO SCH (21:15)
[2019-06-12] MEDS: CARBIDOPA/LEVODOPA 25-100 MG TABLET PO SCH (21:15)
[2019-06-13 04:30] LABS: Basophils % 0.4 % (0.0-0.8); Eosinophils % 2.8 % (0.00-10.9); Hematocrit 32.5 VOL% (42.0-52.0); Hemoglobin 10.3 GM/DL (14.0-18.0); Lymphocytes % 14.3 % (21.2-54.2); Mean Corpuscular HGB Conc 31.7 GM/DL (32-36); Mean Platelet Volume 10.6 FL (9.6-12.0); Monocytes % 18.5 % (1.7-12.7); Neutrophils % 63.4 % (38.7-73.9); Platelet Count 281 T/CUMM (130-400); Red Blood Count 3.42 MC/CUMM (3.8-5.5); Red Cell Distribution Width 12.9 % (9.3-17.3); White Blood Count 9.3 T/CUMM (4-12)
[2019-06-13 04:31] LABS: Eosinophils # 0.3 10*3/uL (0.0-0.87); Immature Granulocytes % 0.6 %; Immature Granulocytes Absolute 0.06 #; Lymphocytes # 1.3 10*3/uL (1.4-4.0)
[2019-06-13 04:49] LABS: INR 1.2; PT Patient Result 13.1 SECS
[2019-06-13 04:52] LABS: Alanine Aminotransferase < 9 U/L (16-61); Albumin 2.9 G/DL (3.4-5.0); Alkaline Phosphatase 68 U/L (45-117); Aspartate Amino Transferase 17 U/L (0-37); Bilirubin,Indirect 0.7 MG/DL (0.0-1.0); Blood Urea Nitrogen 19 MG/DL (7-18); Calcium 9.3 MG/DL (8.5-10.1); Glucose 105 MG/DL (74-106); Osmolality,Calculated 287.8 MOS/KG (273-304); Total Protein 6.5 G/DL (6.4-8.3)
[2019-06-13 05:05] LABS: Eosinophils 4 % (0-10); Hypochromasia 1+; Lymphocytes 18 % (20-55); Nucleated Red Blood Cells 1 (0-5); Platelet Estimate Adequate; Segmented Neutrophils 61 % (50-85); Total Cells Counted 100
[2019-06-13 05:06] LABS: Microcytosis Slight
[2019-06-13] MEDS: ISOSORBIDE MONONITRATE 20 MG TABLET PO SCH ×2 (09:38→22:02)
[2019-06-13] MEDS: METOPROLOL SUCCINATE XL 100 MG TABLET PO SCH (09:39)
[2019-06-13] MEDS: GABAPENTIN 100 MG CAPSULE PO SCH (09:39)
[2019-06-13] MEDS: SPIRONOLACTONE 25 MG TABLET PO SCH (09:39)
[2019-06-13] MEDS: LISINOPRIL 20 MG TABLET PO SCH (09:40)
[2019-06-13] MEDS: FERROUS SULFATE 325 MG TABLET PO SCH (09:40)
[2019-06-13] MEDS: CITALOPRAM 20 MG TABLET PO SCH (09:40)
[2019-06-13] MEDS: ASPIRIN EC 325 MG TABLET PO SCH (09:40)
[2019-06-13] MEDS: PANTOPRAZOLE 40 MG TABLET PO SCH (09:40)
[2019-06-13] MEDS: DOCUSATE SODIUM 100 MG CAPSULE PO SCH (09:44)
[2019-06-13] MEDS: CHLORHEXIDINE 0.12% ORAL RINSE 60 ML BOTTLE SWISH/SPIT SCH ×2 (09:45→22:03)
[2019-06-13] MEDS ORDERED: FUROSEMIDE 40 MG/4 ML VIAL IV ONE (16:43)
[2019-06-13] MEDS: WARFARIN 5 MG TABLET PO SCH (17:01)
[2019-06-13 18:43] LABS: Apearance,Urine CLOUDY (Clear); Bilirubin,Urine Negative (Negative); Blood, Urine Moderate mg/dL (Negative); Glucose,Urine (UA) Negative (Negative); Hyaline Casts,Urine 4 /LPF (0-3); Ketones,Urine Negative (Negative); Mucus,Urine Occasional /LPF (Occasional); Nitrite,Urine Negative (Negative); Protein,Urine Negative; RBC,Urine 46 /HPF (0-4); Squamous Epithelial Cell,Urine Occasional /HPF (0-10); Urine Color Yellow (Yellow); Urine Specific Gravity 1.018 (1.001-1.035); Urine Urobilinogen < 2.0 EU/DL (0.2-1.0); WBC,Urine 5 /HPF (0-6)
[2019-06-13] MEDS: oxyCODONE/ACETAMINOPHEN 5-325 MG TABLET PO PRN (19:37)
[2019-06-13] MEDS: ROSUVASTATIN 20 MG TABLET PO SCH (22:03)
[2019-06-13] MEDS: MECLIZINE 25 MG TABLET PO SCH (22:03)
[2019-06-13] MEDS: CARBIDOPA/LEVODOPA 25-100 MG TABLET PO SCH (22:03)
[2019-06-14 05:36] LABS: Basophils % 0.3 % (0.0-0.8); Eosinophils # 0.2 10*3/uL (0.0-0.87); Eosinophils % 2.5 % (0.00-10.9); Hematocrit 31.4 VOL% (42.0-52.0); Hemoglobin 9.6 GM/DL (14.0-18.0); Immature Granulocytes % 0.6 %; Immature Granulocytes Absolute 0.05 #; Lymphocytes # 0.7 10*3/uL (1.4-4.0); Lymphocytes % 8.3 % (21.2-54.2); Mean Corpuscular HGB Conc 30.6 GM/DL (32-36); Mean Corpuscular Volume 95.7 FL (87-102); Mean Platelet Volume 10.5 FL (9.6-12.0); Monocytes % 15.8 % (1.7-12.7); Neutrophils % 72.5 % (38.7-73.9); Platelet Count 255 T/CUMM (130-400); Red Blood Count 3.28 MC/CUMM (3.8-5.5); Red Cell Distribution Width 13.1 % (9.3-17.3); White Blood Count 8.8 T/CUMM (4-12)
[2019-06-14 05:46] LABS: INR 1.5; PT Patient Result 15.8 SECS (9.6-12.2)
[2019-06-14 05:56] LABS: Calcium 8.8 MG/DL (8.5-10.1); Osmolality,Calculated 282.3 MOS/KG (273-304)
[2019-06-14 06:06] LABS: Eosinophils 4 % (0-10); Lymphocytes 7 % (20-55); Platelet Estimate Normal; Segmented Neutrophils 69 % (50-85); Total Cells Counted 100
[2019-06-14 06:07] LABS: Polychromasia Few
[2019-06-14] MEDS: SPIRONOLACTONE 25 MG TABLET PO SCH (09:24)
[2019-06-14] MEDS: CHLORHEXIDINE 0.12% ORAL RINSE 60 ML BOTTLE SWISH/SPIT SCH ×2 (09:24→21:21)
[2019-06-14] MEDS: GABAPENTIN 100 MG CAPSULE PO SCH ×2 (09:26→21:47)
[2019-06-14] MEDS: METOPROLOL SUCCINATE XL 100 MG TABLET PO SCH (09:26)
[2019-06-14] MEDS: FERROUS SULFATE 325 MG TABLET PO SCH (09:27)
[2019-06-14] MEDS: ASPIRIN EC 325 MG TABLET PO SCH (09:27)
[2019-06-14] MEDS: DOCUSATE SODIUM 100 MG CAPSULE PO SCH (09:27)
[2019-06-14] MEDS: CITALOPRAM 20 MG TABLET PO SCH (09:27)
[2019-06-14] MEDS: PANTOPRAZOLE 40 MG TABLET PO SCH (09:27)
[2019-06-14] MEDS: LISINOPRIL 20 MG TABLET PO SCH (09:27)
[2019-06-14] MEDS: ISOSORBIDE MONONITRATE 20 MG TABLET PO SCH ×2 (09:28→21:20)
[2019-06-14] MEDS: TAMSULOSIN 0.4 MG CAPSULE PO SCH (12:45)
[2019-06-14] MEDS: WARFARIN 5 MG TABLET PO SCH (18:20)
[2019-06-14] MEDS: MECLIZINE 25 MG TABLET PO SCH (21:20)
[2019-06-14] MEDS: ROSUVASTATIN 20 MG TABLET PO SCH (21:20)
[2019-06-14] MEDS: CARBIDOPA/LEVODOPA 25-100 MG TABLET PO SCH (21:20)
[2019-06-15 05:30] LABS: Basophils % 0.3 % (0.0-0.8); Eosinophils # 0.2 10*3/uL (0.0-0.87); Eosinophils % 2.5 % (0.00-10.9); Hematocrit 32.7 VOL% (42.0-52.0); Immature Granulocytes % 0.8 %; Immature Granulocytes Absolute 0.08 #; Lymphocytes # 1.4 10*3/uL (1.4-4.0); Lymphocytes % 14.2 % (21.2-54.2); Mean Corpuscular HGB Conc 30.6 GM/DL (32-36); Mean Corpuscular Volume 95.6 FL (87-102); Mean Platelet Volume 9.9 FL (9.6-12.0); Monocytes % 15.7 % (1.7-12.7); Neutrophils % 66.5 % (38.7-73.9); Platelet Count 290 T/CUMM (130-400); Red Blood Count 3.42 MC/CUMM (3.8-5.5); White Blood Count 9.7 T/CUMM (4-12)
[2019-06-15 05:39] LABS: INR 1.5; PT Patient Result 16.1 SECS (9.6-12.2)
[2019-06-15 05:56] LABS: Lymphocytes 15 % (20-55); Metamyelocytes 1 %; Platelet Estimate Normal; Segmented Neutrophils 74 % (50-85); Total Cells Counted 100
[2019-06-15 05:57] LABS: Polychromasia Slight
[2019-06-15 06:04] LABS: Calcium 8.9 MG/DL (8.5-10.1); Osmolality,Calculated 282.4 MOS/KG (273-304)
[2019-06-15] MEDS: SPIRONOLACTONE 25 MG TABLET PO SCH (09:28)
[2019-06-15] MEDS: PANTOPRAZOLE 40 MG TABLET PO SCH (09:28)
[2019-06-15] MEDS: ASPIRIN EC 325 MG TABLET PO SCH (09:28)
[2019-06-15] MEDS: GABAPENTIN 100 MG CAPSULE PO SCH ×2 (09:28→20:36)
[2019-06-15] MEDS: CITALOPRAM 20 MG TABLET PO SCH (09:29)
[2019-06-15] MEDS: FERROUS SULFATE 325 MG TABLET PO SCH (09:29)
[2019-06-15] MEDS: TAMSULOSIN 0.4 MG CAPSULE PO SCH (09:29)
[2019-06-15] MEDS: DOCUSATE SODIUM 100 MG CAPSULE PO SCH (09:29)
[2019-06-15] MEDS: METOPROLOL SUCCINATE XL 100 MG TABLET PO SCH (09:29)
[2019-06-15] MEDS: LISINOPRIL 20 MG TABLET PO SCH (09:29)
[2019-06-15] MEDS: ISOSORBIDE MONONITRATE 20 MG TABLET PO SCH ×2 (09:34→20:35)
[2019-06-15] MEDS: CHLORHEXIDINE 0.12% ORAL RINSE 60 ML BOTTLE SWISH/SPIT SCH ×2 (09:34→20:36)
[2019-06-15] MEDS: WARFARIN 5 MG TABLET PO SCH (17:35)
[2019-06-15] MEDS: MECLIZINE 25 MG TABLET PO SCH (20:35)
[2019-06-15] MEDS: ROSUVASTATIN 20 MG TABLET PO SCH (20:35)
[2019-06-15] MEDS: CARBIDOPA/LEVODOPA 25-100 MG TABLET PO SCH (20:36)
[2019-06-15] MEDS: oxyCODONE/ACETAMINOPHEN 5-325 MG TABLET PO PRN (20:40)
[2019-06-16 05:26] LABS: Basophils % 0.4 % (0.0-0.8); Eosinophils # 0.2 10*3/uL (0.0-0.87); Eosinophils % 1.9 % (0.00-10.9); Hemoglobin 9.1 GM/DL (14.0-18.0); Immature Granulocytes % 0.8 %; Immature Granulocytes Absolute 0.07 #; Lymphocytes # 0.9 10*3/uL (1.4-4.0); Lymphocytes % 11.1 % (21.2-54.2); Mean Corpuscular HGB Conc 31.4 GM/DL (32-36); Mean Platelet Volume 10.3 FL (9.6-12.0); Monocytes % 16.5 % (1.7-12.7); Neutrophils % 69.3 % (38.7-73.9); Platelet Count 261 T/CUMM (130-400); Red Blood Count 3.02 MC/CUMM (3.8-5.5); Red Cell Distribution Width 13.2 % (9.3-17.3); White Blood Count 8.3 T/CUMM (4-12)
[2019-06-16 05:31] LABS: INR 1.7; PT Patient Result 18.9 SECS (9.6-12.2)
[2019-06-16 06:47] LABS: Anisocytosis 1+; Band Neutrophils 1 % (0-10); Lymphocytes 11 % (20-55); Platelet Estimate Normal; Segmented Neutrophils 78 % (50-85); Total Cells Counted 100
[2019-06-16 06:48] LABS: Macrocytosis Slight
[2019-06-16] MEDS: ASPIRIN EC 325 MG TABLET PO SCH (08:45)
[2019-06-16] MEDS: TAMSULOSIN 0.4 MG CAPSULE PO SCH (08:45)
[2019-06-16] MEDS: GABAPENTIN 100 MG CAPSULE PO SCH ×2 (08:45→20:56)
[2019-06-16] MEDS: METOPROLOL SUCCINATE XL 100 MG TABLET PO SCH (08:45)
[2019-06-16] MEDS: ISOSORBIDE MONONITRATE 20 MG TABLET PO SCH ×2 (08:45→20:56)
[2019-06-16] MEDS: LISINOPRIL 20 MG TABLET PO SCH (08:45)
[2019-06-16] MEDS: CHLORHEXIDINE 0.12% ORAL RINSE 60 ML BOTTLE SWISH/SPIT SCH ×2 (08:46→21:02)
[2019-06-16] MEDS: DOCUSATE SODIUM 100 MG CAPSULE PO SCH (08:46)
[2019-06-16] MEDS: SPIRONOLACTONE 25 MG TABLET PO SCH (08:46)
[2019-06-16] MEDS: FERROUS SULFATE 325 MG TABLET PO SCH (08:46)
[2019-06-16] MEDS: CITALOPRAM 20 MG TABLET PO SCH (08:46)
[2019-06-16] MEDS: PANTOPRAZOLE 40 MG TABLET PO SCH (08:46)
[2019-06-16] MEDS: WARFARIN 5 MG TABLET PO SCH (17:14)
[2019-06-16] MEDS: ROSUVASTATIN 20 MG TABLET PO SCH (20:55)
[2019-06-16] MEDS: MECLIZINE 25 MG TABLET PO SCH (20:56)
[2019-06-16] MEDS: CARBIDOPA/LEVODOPA 25-100 MG TABLET PO SCH (20:56)
[2019-06-16] MEDS: oxyCODONE/ACETAMINOPHEN 5-325 MG TABLET PO PRN (21:03)
[2019-06-17 06:03] LABS: Basophils % 0.3 % (0.0-0.8); Eosinophils # 0.2 10*3/uL (0.0-0.87); Eosinophils % 2.4 % (0.00-10.9); Hematocrit 29.2 VOL% (42.0-52.0); Immature Granulocytes % 0.6 %; Immature Granulocytes Absolute 0.04 #; Lymphocytes # 0.8 10*3/uL (1.4-4.0); Lymphocytes % 12.1 % (21.2-54.2); Mean Corpuscular HGB Conc 30.8 GM/DL (32-36); Mean Corpuscular Volume 96.1 FL (87-102); Mean Platelet Volume 10.4 FL (9.6-12.0); Monocytes % 16.5 % (1.7-12.7); Neutrophils % 68.1 % (38.7-73.9); Platelet Count 259 T/CUMM (130-400); Red Blood Count 3.04 MC/CUMM (3.8-5.5); Red Cell Distribution Width 13.3 % (9.3-17.3); White Blood Count 6.7 T/CUMM (4-12)
[2019-06-17 06:09] LABS: INR 1.9; PT Patient Result 20.5 SECS (9.6-12.2)
[2019-06-17 06:27] LABS: Eosinophils 4 % (0-10); Hypochromasia 1+; Lymphocytes 14 % (20-55); Platelet Estimate Adequate; Segmented Neutrophils 70 % (50-85); Total Cells Counted 100
[2019-06-17 06:29] LABS: Calcium 8.9 MG/DL (8.5-10.1)
[2019-06-17 08:40] VITALS: BP 141/70
[2019-06-17] MEDS: LISINOPRIL 20 MG TABLET PO SCH (09:20)
[2019-06-17] MEDS: CITALOPRAM 20 MG TABLET PO SCH (09:20)
[2019-06-17] MEDS: DOCUSATE SODIUM 100 MG CAPSULE PO SCH (09:21)
[2019-06-17] MEDS: FERROUS SULFATE 325 MG TABLET PO SCH (09:21)
[2019-06-17] MEDS: METOPROLOL SUCCINATE XL 100 MG TABLET PO SCH (09:21)
[2019-06-17] MEDS: GABAPENTIN 100 MG CAPSULE PO SCH (09:21)
[2019-06-17] MEDS: ASPIRIN EC 325 MG TABLET PO SCH (09:21)
[2019-06-17] MEDS: PANTOPRAZOLE 40 MG TABLET PO SCH (09:21)
[2019-06-17] MEDS: ISOSORBIDE MONONITRATE 20 MG TABLET PO SCH (09:21)
[2019-06-17] MEDS: TAMSULOSIN 0.4 MG CAPSULE PO SCH (09:21)
[2019-06-17] MEDS: SPIRONOLACTONE 25 MG TABLET PO SCH (09:21)
[2019-06-17] MEDS: CHLORHEXIDINE 0.12% ORAL RINSE 60 ML BOTTLE SWISH/SPIT SCH (09:22)
== END 2019-06-17 11:07 | disposition home health service (06) | DRG 234 ==
LOC: N.CL 11:31 → N.TELEN 14:52 → N.CVR 06-07 11:35 → N.ICU 06-08 12:58 → N.TELES 06-08 18:32
PROVIDERS: ADMIT Internal Medicine Cardiovascular Disease; ATTEND Internal Medicine Cardiovascular Disease
PROC: CLCCHCL (ICD-10-PCS; 2019-06-06 14:15)

== ENCOUNTER 2020-07-14 10:21 | Inpatient (IN) ==
[2020-07-14 10:35] LABS: Basophils % 0.5 % (0.0-0.8); Eosinophils # 0.1 10*3/uL (0.0-0.87); Eosinophils % 0.7 % (0.00-10.9); Hematocrit 39.3 VOL% (42.0-52.0); Hemoglobin 12.7 GM/DL (14.0-18.0); Immature Granulocytes % 0.4 %; Immature Granulocytes Absolute 0.03 #; Lymphocytes # 0.5 10*3/uL (1.4-4.0); Lymphocytes % 5.5 % (21.2-54.2); Mean Corpuscular HGB Conc 32.3 GM/DL (32-36); Mean Corpuscular Volume 95.6 FL (87-102); Mean Platelet Volume 9.8 FL (9.6-12.0); Monocytes % 12.5 % (1.7-12.7); Neutrophils % 80.4 % (38.7-73.9); Platelet Count 199 T/CUMM (130-400); Red Blood Count 4.11 MC/CUMM (3.8-5.5); Red Cell Distribution Width 13.2 % (9.3-17.3); White Blood Count 8.1 T/CUMM (4-12)
[2020-07-14 10:50] LABS: INR 3.2; PT Patient Result 31.9 SECS (9.8-11.9); Partial Thromboplastin Time 39.6 SECS (23.9-33.8)
[2020-07-14 11:19] LABS: Albumin 3.7 G/DL (3.4-5.0); Bilirubin,Total 1.2 MG/DL (0.2-1.0); Calcium 9.1 MG/DL (8.5-10.1); Osmolality,Calculated 285.1 MOS/KG (273-304); Total Protein 7.1 G/DL (6.4-8.3)
[2020-07-14] MEDS ORDERED: FUROSEMIDE 40 MG/4 ML VIAL IV STA (11:32)
[2020-07-14] MEDS ORDERED: FUROSEMIDE 20 MG/2 ML VIAL ONE (11:41)
[2020-07-14] MEDS ORDERED: FUROSEMIDE 40 MG/4 ML VIAL ONE (11:42)
[2020-07-14] MEDS ORDERED: ONDANSETRON 4 MG/2 ML VIAL IV PRN (12:26)
[2020-07-14] MEDS ORDERED: GLUCAGON 1 MG VIAL IM PRN (12:26)
[2020-07-14] MEDS ORDERED: MAGNESIUM SULF RIDER 2 GM in PREMIX 1 EACH IV PRN (12:26)
[2020-07-14] MEDS ORDERED: DEXTROSE 50% 25 GM/50 ML VIAL IV PRN (12:26)
[2020-07-14] MEDS ORDERED: POTASSIUM CHLORIDE 20 MEQ TABLET PO PRN (12:26)
[2020-07-14] MEDS ORDERED: MAGNESIUM SULF RIDER 4 GM in PREMIX 1 EACH IV PRN (12:26)
[2020-07-14] MEDS ORDERED: ALBUTEROL/IPRATROPIUM 3 ML NEB RESP TX PRN (13:00)
[2020-07-14] MEDS: FUROSEMIDE 40 MG/4 ML VIAL IV SCH (17:37)
[2020-07-14] MEDS ORDERED: WARFARIN 3 MG TABLET PO SCH (18:00)
[2020-07-14] MEDS: rOPINIRole 0.25 MG TABLET PO SCH (21:00)
[2020-07-14] MEDS: traZODone 50 MG TABLET PO SCH (21:00)
[2020-07-14] MEDS: MINOXIDIL 10 MG PO SCH (21:00)
[2020-07-15 05:32] LABS: Basophils % 0.5 % (0.0-0.8); Eosinophils # 0.2 10*3/uL (0.0-0.87); Eosinophils % 2.7 % (0.00-10.9); Hematocrit 35.1 VOL% (42.0-52.0); Hemoglobin 11.3 GM/DL (14.0-18.0); Immature Granulocytes % 0.3 %; Immature Granulocytes Absolute 0.02 #; Lymphocytes # 0.7 10*3/uL (1.4-4.0); Lymphocytes % 11.3 % (21.2-54.2); Mean Corpuscular HGB Conc 32.2 GM/DL (32-36); Mean Corpuscular Volume 95.9 FL (87-102); Monocytes % 19.2 % (1.7-12.7); Platelet Count 182 T/CUMM (130-400); Red Blood Count 3.66 MC/CUMM (3.8-5.5); Red Cell Distribution Width 13.1 % (9.3-17.3); White Blood Count 6.3 T/CUMM (4-12)
[2020-07-15 05:58] LABS: Albumin 3.2 G/DL (3.4-5.0); Bilirubin,Total 2.2 MG/DL (0.2-1.0); Calcium 9.1 MG/DL (8.5-10.1); Osmolality,Calculated 285.1 MOS/KG (273-304); Risk Ratio 2.14; Thyroid Stimulating Hormone 1.19 uIU/ml (0.358-3.74); Total Protein 6.6 G/DL (6.4-8.3); VLDL CHOLESTEROL 10.8 MG/DL
[2020-07-15 06:06] LABS: Anisocytosis 1+; Band Neutrophils 2 % (0-10); Lymphocytes 12 % (20-55); Macrocytosis 1+; Metamyelocytes 1 %; Platelet Estimate Normal; Segmented Neutrophils 62 % (50-85); Total Cells Counted 100
[2020-07-15] MEDS: FUROSEMIDE 40 MG/4 ML VIAL IV SCH ×2 (07:27→16:24)
[2020-07-15] MEDS: ASPIRIN EC 81 MG TABLET PO SCH (08:23)
[2020-07-15] MEDS: ROSUVASTATIN 10 MG TABLET PO SCH (08:23)
[2020-07-15] MEDS: METOPROLOL TARTRATE 25 MG TABLET PO SCH (08:23)
[2020-07-15] MEDS: CITALOPRAM 40 MG TABLET PO SCH (08:23)
[2020-07-15] MEDS: PANTOPRAZOLE 40 MG TABLET PO SCH (08:24)
[2020-07-15] MEDS: MINOXIDIL 10 MG PO SCH ×2 (08:24→21:15)
[2020-07-15] MEDS: WARFARIN 4 MG TABLET PO SCH (18:19)
[2020-07-15] MEDS: rOPINIRole 0.25 MG TABLET PO SCH (21:14)
[2020-07-15] MEDS: clonazePAM 0.5 MG TABLET PO SCH (21:14)
[2020-07-15] MEDS: GABAPENTIN 100 MG CAPSULE PO SCH (21:14)
[2020-07-15] MEDS: CARBIDOPA/LEVODOPA 25-100 MG TABLET PO SCH (21:14)
[2020-07-15] MEDS: traZODone 50 MG TABLET PO SCH (21:14)
[2020-07-16 06:31] LABS: Basophils % 0.7 % (0.0-0.8); Eosinophils # 0.2 10*3/uL (0.0-0.87); Eosinophils % 3.9 % (0.00-10.9); Hematocrit 36.5 VOL% (42.0-52.0); Hemoglobin 11.8 GM/DL (14.0-18.0); Immature Granulocytes % 0.2 %; Immature Granulocytes Absolute 0.01 #; Lymphocytes # 0.6 10*3/uL (1.4-4.0); Lymphocytes % 10.2 % (21.2-54.2); Mean Corpuscular HGB Conc 32.3 GM/DL (32-36); Mean Corpuscular Volume 95.1 FL (87-102); Mean Platelet Volume 10.6 FL (9.6-12.0); Monocytes % 19.2 % (1.7-12.7); Neutrophils % 65.8 % (38.7-73.9); Platelet Count 173 T/CUMM (130-400); Red Blood Count 3.84 MC/CUMM (3.8-5.5); White Blood Count 5.9 T/CUMM (4-12)
[2020-07-16 06:55] LABS: Alanine Aminotransferase < 9 U/L (16-61); Albumin 3.2 G/DL (3.4-5.0); Alkaline Phosphatase 70 U/L (45-117); Aspartate Amino Transferase 14 U/L (0-37); Blood Urea Nitrogen 24 MG/DL (7-18); Calcium 9.3 MG/DL (8.5-10.1); Estimated Glom Filtration Rate 68 ML/MIN; Glucose 94 MG/DL (74-106); Total Protein 6.8 G/DL (6.4-8.3)
[2020-07-16 06:58] LABS: Anisocytosis Slight; Band Neutrophils 1 % (0-10); Eosinophils 6 % (0-10); Lymphocytes 8 % (20-55); Platelet Estimate Normal; Segmented Neutrophils 65 % (50-85); Total Cells Counted 100
[2020-07-16] MEDS ORDERED: POTASSIUM CHLORIDE 20 MEQ TABLET PO ONE (08:55)
[2020-07-16] MEDS ORDERED: FUROSEMIDE 40 MG TABLET PO SCH (09:00)
[2020-07-16] MEDS: ASPIRIN EC 81 MG TABLET PO SCH (09:51)
[2020-07-16] MEDS: CITALOPRAM 40 MG TABLET PO SCH (09:51)
[2020-07-16] MEDS: METOPROLOL TARTRATE 25 MG TABLET PO SCH (09:52)
[2020-07-16] MEDS: PANTOPRAZOLE 40 MG TABLET PO SCH (09:52)
[2020-07-16] MEDS: ROSUVASTATIN 10 MG TABLET PO SCH (09:52)
[2020-07-16] MEDS: GABAPENTIN 100 MG CAPSULE PO SCH ×2 (09:52→21:21)
[2020-07-16] MEDS: MINOXIDIL 10 MG PO SCH ×2 (09:53→21:21)
[2020-07-16] MEDS: FUROSEMIDE 40 MG/4 ML VIAL IV SCH (10:00)
[2020-07-16] MEDS: SPIRONOLACTONE 25 MG TABLET PO SCH (14:49)
[2020-07-16] MEDS: WARFARIN 4 MG TABLET PO SCH (17:10)
[2020-07-16] MEDS: rOPINIRole 0.25 MG TABLET PO SCH (21:21)
[2020-07-16] MEDS: CARBIDOPA/LEVODOPA 25-100 MG TABLET PO SCH (21:21)
[2020-07-16] MEDS: traZODone 50 MG TABLET PO SCH (21:21)
[2020-07-16] MEDS: clonazePAM 0.5 MG TABLET PO SCH (21:21)
[2020-07-17 06:30] LABS: Basophils # 0.1 10*3/uL (0.0-0.2); Basophils % 1.2 % (0.0-0.8); Eosinophils # 0.2 10*3/uL (0.0-0.87); Eosinophils % 3.7 % (0.00-10.9); Hematocrit 37.6 VOL% (42.0-52.0); Hemoglobin 11.9 GM/DL (14.0-18.0); Immature Granulocytes % 0.4 %; Immature Granulocytes Absolute 0.02 #; Lymphocytes # 0.6 10*3/uL (1.4-4.0); Lymphocytes % 11.8 % (21.2-54.2); Mean Corpuscular HGB Conc 31.6 GM/DL (32-36); Mean Corpuscular Volume 97.2 FL (87-102); Mean Platelet Volume 10.2 FL (9.6-12.0); Monocytes % 20.5 % (1.7-12.7); Neutrophils % 62.4 % (38.7-73.9); Platelet Count 177 T/CUMM (130-400); Red Blood Count 3.87 MC/CUMM (3.8-5.5); White Blood Count 5.2 T/CUMM (4-12)
[2020-07-17 07:13] LABS: Eosinophils 4 % (0-10); Hypochromasia 1+; Lymphocytes 9 % (20-55); Platelet Estimate Adequate; Segmented Neutrophils 69 % (50-85); Total Cells Counted 100
[2020-07-17 08:58] LABS: Alanine Aminotransferase < 9 U/L (16-61); Albumin 3.2 G/DL (3.4-5.0); Alkaline Phosphatase 69 U/L (45-117); Aspartate Amino Transferase 15 U/L (0-37); Blood Urea Nitrogen 23 MG/DL (7-18); Calcium 9.4 MG/DL (8.5-10.1); Estimated Glom Filtration Rate 69 ML/MIN; Glucose 101 MG/DL (74-106); Total Protein 6.8 G/DL (6.4-8.3)
[2020-07-17] MEDS ORDERED: FUROSEMIDE 40 MG TABLET PO SCH (09:00)
[2020-07-17] MEDS: PANTOPRAZOLE 40 MG TABLET PO SCH (09:09)
[2020-07-17] MEDS: GABAPENTIN 100 MG CAPSULE PO SCH (09:10)
[2020-07-17] MEDS: ROSUVASTATIN 10 MG TABLET PO SCH (09:10)
[2020-07-17] MEDS: CITALOPRAM 40 MG TABLET PO SCH (09:10)
[2020-07-17] MEDS: METOPROLOL TARTRATE 25 MG TABLET PO SCH (09:11)
[2020-07-17] MEDS: SPIRONOLACTONE 25 MG TABLET PO SCH (09:11)
[2020-07-17] MEDS: ASPIRIN EC 81 MG TABLET PO SCH (09:11)
[2020-07-17] MEDS: MINOXIDIL 10 MG PO SCH (09:18)
[2020-07-17 12:10] VITALS: BP 152/89
== END 2020-07-17 13:07 | disposition home or self-care (01) | DRG 291 ==
LOC: EDBD → EDUNIT# → N.ED 10:21 → N.EDINP 12:26 → N.TELEN 15:19
PROVIDERS: ADMIT Internal Medicine; ATTEND Internal Medicine